=== PATIENT | female | born 1985 | race African-American/Black ===

== ENCOUNTER 2021-08-30 05:29 | Emergency (ER) | payer MEDICAID, OTHER ==
[~2021-08-30] VITALS: Ht 162.6 cm; Wt 54.4 kg
[2021-08-30 07:52] VITALS: BP 152/104
[2021-08-30] MEDS ORDERED: methylPREDNISolone SOD SUCC 125 MG/2 ML VL IM ONE (08:15)
[2021-08-30] MEDS ORDERED: IPRATROPIUM BROM 0.5 MG/2.5ML INH SOL NEB ONE (08:15)
[2021-08-30] MEDS ORDERED: ALBUTEROL SULF 2.5 MG/0.5ML(0.5%) NEB SOLN NEB ONE (08:15)
[2021-08-30] MEDS ORDERED: PRED20TA2 PO (09:12)
[2021-08-30] MEDS ORDERED: ALBUAER3 IN (09:12)
[2021-08-30] MEDS ORDERED: AMOX-277 PO (09:12)
== END 2021-08-30 10:40 | disposition home or self-care (01) ==
LOC: ER 05:29
DX: J06.9 Acute upper respiratory infection, unspecified (principal); Z53.21 Procedure and treatment not carried out due to patient leaving prior to being seen by health care provider
CPT/HCPCS: 36415; 71045; 87426; 87804; 94640; 96372; 99284; J2930; J7644